=== PATIENT | male | born 1945 | race Caucasian/White ===

== ENCOUNTER 2018-08-26 21:04 | Outpatient (CLI) | payer MEDICARE ==
--- NOTE | 2018-08-26 22:30 | Ultrasound Report ---
Reason: PAIN IN LEFT KNEE Procedure Date: 08/26/2018 Accession Number: [id number] / [id number] Procedure: US - Duplex Ext Veins Left CPT Code: FULL RESULT: EXAM: LEFT LOWER EXTREMITY VENOUS ULTRASOUND EXAM DATE: 08/26/2018 09:42 PM. CLINICAL HISTORY: PAIN IN LEFT KNEE. Left popliteal pain. COMPARISON: None. TECHNIQUE: Real-time sonographic vascular imaging was performed by the frame operator through the lower extremity utilizing both color-flow and Doppler spectral analysis. Multiple pharmacy sales representative static images were saved for review. FINDINGS: Common Femoral Vein (CFV): Normal. CFV-GSV Junction: Normal. Profunda Femoral Vein (PFV): Normal. Femoral Vein (FV) Prox: Normal. Femoral Vein (FV) Mid: Normal. Femoral Vein (FV) Dist: Normal. Popliteal Vein: Normal. Posterior Tibial Veins: Normal. Peroneal Veins: Normal. IMPRESSION: No evidence for deep venous thrombosis. [facility]
== END 2018-08-26 21:05 | disposition home or self-care (01) ==
LOC: DI 21:04
PROVIDERS: ATTEND Nurse Practitioner Family
DX: M25.562 Pain in left knee (principal)

== ENCOUNTER 2019-01-08 09:35 | Outpatient (CLI) | payer MEDICARE ==
--- NOTE | 2019-01-08 11:09 | XRAY Report ---
Reason: KNEE PAIN, HX BAKERS CYST Procedure Date: 01/08/2019 Accession Number: [id number] / [id number] Procedure: XR - Knee 3 View LT CPT Code: FULL RESULT: EXAM: LEFT KNEE RADIOGRAPHY EXAM DATE: 01/08/2019 09:57 AM. CLINICAL HISTORY: Knee pain, history of Mirza's cyst. COMPARISON: None. TECHNIQUE: 3 views. FINDINGS: Bones: Normal. No fractures or bone lesions. Joints: There is no significant joint effusion or subluxation. Soft Tissues: Normal. No soft tissue swelling. IMPRESSION: No osseous abnormality and no significant degenerative changes. [facility]
== END 2019-01-08 09:36 | disposition home or self-care (01) ==
LOC: DI 09:35
PROVIDERS: ATTEND Family Medicine
DX: M25.562 Pain in left knee (principal)

== ENCOUNTER 2022-01-17 10:58 | Day surgery (SDC) | payer MEDICARE ==
[~2022-01-17 10:58] MED LIST: PROPOFOL 500 MG/50 ML 500 MG/50 ML VIAL ONE
[2022-01-17] MEDS ORDERED: LACTATED RINGERS 1,000 ML IV ONE ×2 (11:15→11:56)
--- NOTE | 2022-01-17 11:15 | ANESTHESIA ---
Pre-Anesthesia VS, & Labs - Diagnosis positive cologuard - Procedure colonoscopy - NPO Other (prep this am) Home Medications and Allergies Home Medications: Ambulatory Orders Atenolol [Tenormin] 25 mg PO DAILY 01/17/22 Allergies/Adverse Reactions: Allergies Allergy/AdvReac Type Severity Reaction Status Date / Time No Known Drug Allergies Allergy Verified 01/17/22 11:21 Anes History & Medical History - Anesthetic History Anesthesia Complications: reports: No previous complications - Medical History Cardiovascular: reports: None Pulmonary: reports: Sleep apnea, CPAP use History of Cancer?: No - Surgical History General: reports: Colonoscopy Exam General: Alert, Oriented x3 Mallampati classification: II Thyromental Distance: greater than 6 cm Respiratory: Lungs clear Cardiovascular: Regular rate, Normal S1, Normal S2 Plan Anesthesia Type: Total IV Consent for Procedure(s) Verified and Reviewed: Yes Code Status: Attempt Resuscitation ASA classification: 2-Mild systemic disease Is this case an emergency?: No
[2022-01-17 12:23] VITALS: BP 128/73
== END 2022-01-17 10:59 | disposition home or self-care (01) ==
LOC: SDS 10:58
PROVIDERS: ATTEND Surgery
DX: R19.5 Other fecal abnormalities (principal); K57.30 Diverticulosis of large intestine without perforation or abscess without bleeding; K64.8 Other hemorrhoids; G47.33 Obstructive sleep apnea (adult) (pediatric)
CPT/HCPCS: 45378; J7120